=== PATIENT | female | born 1980 | race Caucasian/White ===

== ENCOUNTER 2024-01-26 14:21 | Emergency (ER) | payer MEDICAID ==
[~2024-01-26] VITALS: Ht 149.9 cm; Wt 63.3 kg
[2024-01-26 15:15] VITALS: BP 137/87; PULSE 80; RESP 16; TEMP 98.6; O2SAT 99
[2024-01-26] MEDS ORDERED: famotidine 20MG/2.5ML oral suspension PO ONE (15:25)
[2024-01-26] MEDS ORDERED: DIPH25CA83 PO (15:27)
[2024-01-26] MEDS ORDERED: PRED20TA PO (15:27)
[2024-01-26] MEDS: famotidine 20mg tablet PO ONE (15:49)
[2024-01-26] MEDS: dexamethasone sod phosphate 10mg/ml inj PO STA (15:49)
[2024-01-26] MEDS: diphenhydrAMINE 25mg capsule PO ONE (15:49)
[2024-01-26] MEDS ORDERED: HYDR28CR14 TOP (16:13)
== END 2024-01-26 16:21 | disposition home or self-care (01) ==
LOC: ER 14:22
DX: R22.0 Localized swelling, mass and lump, head (principal); R22.1 Localized swelling, mass and lump, neck; T49.4X5A Adverse effect of keratolytics, keratoplastics, and other hair treatment drugs and preparations, initial encounter; Y92.89 Other specified places as the place of occurrence of the external cause
CPT/HCPCS: 99284; J1100; Q0163